=== PATIENT | male | born 2000 | race Caucasian/White ===

== ENCOUNTER 2021-08-25 09:27 | Emergency (ER) | payer OTHER ==
--- NOTE | 2021-08-25 10:05 | EDM.PDOC ---
ED HPI GENERAL MEDICAL PROBLEM - General Chief Complaint: Upper Extremity Injury/Pain Stated Complaint: MIGHT HAVE BROKEN WRIST Time Seen by Provider: 08/25/21 09:55 Source of Information: Reports: Patient, RN. Denies: Old Records History Limitations: Reports: No Limitations - History of Present Illness INITIAL COMMENTS - FREE TEXT/NARRATIVE: 21 yo male comes from work after accidentally having a brick fall onto the lateral aspect of his R forearm. He did incur a break in the skin. His tetanus is not UTD. Onset: Today, Sudden Onset Date: 08/25/21 Duration: Minutes: Location: Reports: Upper Extremity, Right Quality: Reports: Ache Severity: Mild Improves with: Reports: Rest Worsens with: Reports: Movement Context: Reports: Trauma Associated Symptoms: Reports: No Other Symptoms Treatments [employer]: Reports: Other (see below) (none) Right Arm Pain Score (Numeric/FACES): 6 - Related Data Allergies Allergy/AdvReac Type Severity Reaction Status Date / Time cigarette smoke Allergy Severe Airway Verified 08/25/21 09:52 Tightness Home Meds: Home Meds NK [No Known Home Meds] 08/25/21 [History] Past Medical History Neurological History: Reports: Concussion - Infectious Disease History Infectious Disease History: Reports: None - Past Surgical History GI Surgical History: Reports: Hernia, Abdominal Social & Family History - Tobacco Use Tobacco Use Comment: vapes daily - Caffeine Use Caffeine Use: Reports: Energy Drinks - Recreational Drug Use Recreational Drug Use: No Review of Systems - Review of Systems Review Of Systems: See Below Constitutional: Reports: No Symptoms Musculoskeletal: Reports: Arm Pain (R forearm) Skin: Reports: Wound (small break in the skin of the mid R forearm laterally) Neurological: Reports: No Symptoms ED EXAM, GENERAL - Physical Exam Exam: See Below Exam Limited By: No Limitations General Appearance: Alert, WD/WN, No Apparent Distress Extremities: Pedal Edema (R mid forearm laterally has tenderness and a small amt of swelling. ), Arm Pain (R mid forearm). No: Limited Range of Motion, Increased Warmth, Redness Neurological: Alert, Oriented, CN II-XII Intact, Normal Cognition, No Motor/Sensory Deficits Psychiatric: Normal Affect, Normal Mood Skin Exam: Warm, Dry, Normal Color, No Rash, Wound/Incision (small wound at site of impact by brick). No: Intact Course - Vital Signs Last Recorded V/S: Last Vital Signs Temp 36.9 C 08/25/21 09:49 Pulse 61 08/25/21 09:49 Resp 16 08/25/21 09:49 BP 128/53 L 08/25/21 09:49 Pulse Ox 99 08/25/21 09:49 - Orders/Labs/Meds Orders: Active Orders 24 hr Category Date Time Status Vaccine to be Administered/Admin Charge [RC] ASDIRECTED Care 08/25/21 09:59 Active Forearm 2V Rt [CR] Stat Exams 08/25/21 09:38 Ordered Bacitracin [Bacitracin Oint 1 GM] Med 08/25/21 10:09 Once 1 dose TOP ONETIME ONE Meds: Medications Discontinued Medications Generic Name Dose Route Start Last Admin Trade Name Freq PRN Reason Stop Dose Admin Diphtheria/Tetanus/Acell Pertussis 0.5 ml 08/25/21 09:59 Diphtheria,Pertussis(Acell),Tetanus Vaccine 0.5 Ml Syringe IM 08/25/21 10:00 .ONCE ONE - Radiology Interpretation Free Text/Narrative:: R forearm X-ray-neg Departure - Departure Time of Disposition: 10:25 Disposition: Home, Self-Care 01 Condition: Fair Clinical Impression: Contusion of right forearm Qualifiers: Encounter type: initial encounter Qualified Code(s): S50.11XA - Contusion of right forearm, initial encounter Open wound of right forearm Qualifiers: Encounter type: initial encounter Qualified Code(s): S51.801A - Unspecified open wound of right forearm, initial encounter - Discharge Information *PRESCRIPTION DRUG MONITORING PROGRAM REVIEWED*: Not Applicable *COPY OF PRESCRIPTION DRUG MONITORING REPORT IN PATIENT ISHA: Not Applicable Instructions: Contusion, [id number] Referrals: PCP,None [Primary Care Provider] - Forms: ED Department Discharge Additional Instructions: Clean your wound twice daily with soap and water, dry, and apply antibiotic ointment and a new dressing. Take ibuprofen and/or acetaminophen for pain relief as needed. Recheck for signs of wound infection. Sepsis Event Note (ED) - Evaluation Sepsis Screening Result: No Definite Risk - Focused Exam Vital Signs: Vital Signs Temp Pulse Resp BP Pulse Ox 08/25/21 09:49 36.9 C 61 16 128/53 L 99 - My Orders Last 24 Hours: My Active Orders 08/25/21 09:38 Forearm 2V Rt [CR] Stat 08/25/21 09:59 Vaccine to be Administered/Admin Charge [RC] ASDIRECTED 08/25/21 10:09 Bacitracin [Bacitracin Oint 1 GM] 1 dose TOP ONETIME ONE - Assessment/Plan Last 24 Hours: My Active Orders 08/25/21 09:38 Forearm 2V Rt [CR] Stat 08/25/21 09:59 Vaccine to be Administered/Admin Charge [RC] ASDIRECTED 08/25/21 10:09 Bacitracin [Bacitracin Oint 1 GM] 1 dose TOP ONETIME ONE
[2021-08-25] MEDS ORDERED: Bacitracin Oint 1 GM U/D Packet TOP ONE (10:09)
[2021-08-25] MEDS: Diphtheria,Pertussis(Acell),Tetanus Vaccine 0.5 ML Syringe IM ONE ×2 (10:31→10:42)
--- NOTE | 2021-08-25 11:17 | CR ---
Forearm 2V Rt CLINICAL HISTORY: Injury FINDINGS: There is no acute fracture within the forearm. No foreign body seen IMPRESSION: Negative right forearm.
== END 2021-08-25 10:35 | disposition home or self-care (01) ==
LOC: JP.ED 09:27
DX: S51.801A Unspecified open wound of right forearm, initial encounter (principal); Z23 Encounter for immunization; W20.8XXA Other cause of strike by thrown, projected or falling object, initial encounter
CPT/HCPCS: 73090-26-RT; 73090-RT; 90471; 90715; 99283-25